=== PATIENT | female | born 1980 | race African-American/Black ===

== ENCOUNTER 2017-05-12 10:27 | Emergency (ER) | payer OTHER ==
[~2017-05-12] VITALS: Ht 160 cm; Wt 86.2 kg
[2017-05-12 10:49] VITALS: BP 148/95
== END 2017-05-12 11:10 | disposition home or self-care (01) ==
LOC: ER 10:27
DX: N61.1 Abscess of the breast and nipple (principal)

== ENCOUNTER 2017-05-14 10:04 | Emergency (ER) | payer OTHER ==
[~2017-05-14] VITALS: Ht 160 cm; Wt 86.2 kg
[2017-05-14 10:26] VITALS: BP 141/84
== END 2017-05-14 11:17 | disposition home or self-care (01) ==
LOC: ER 10:04 → EDUNIT# 10:04 → ER 11:17
DX: N61.1 Abscess of the breast and nipple (principal)
CPT/HCPCS: 10060

== ENCOUNTER 2017-05-18 19:07 | Emergency (ER) | payer OTHER ==
[~2017-05-18] VITALS: Ht 160 cm; Wt 86.2 kg
[2017-05-18 20:16] VITALS: BP 137/90
== END 2017-05-18 20:37 | disposition home or self-care (01) ==
LOC: ER 19:07
DX: N61.1 Abscess of the breast and nipple (principal); Z48.01 Encounter for change or removal of surgical wound dressing

== ENCOUNTER → 2020-01-15 | Day surgery (SDC) | payer BC ==
[2020-01-13 12:17] LABS: Basophils # (auto) 0 10 ^3/uL (0-0.2); Basophils % (auto) 0.3 % (0.0-2.0); Eosinophils # (auto) 0.1 10 ^3/uL (0-0.8); Hematocrit 44.6 % (36.0-46.0); Hemoglobin 14.8 g/dL (12.2-16.2); Lymphocytes # (auto) 1.8 10 ^3/uL (0.4-5.4); Lymphocytes % (auto) 23.6 % (10.0-50.0); Mean Corpuscular Hemoglobin 32.4 pg (28.0-32.0); Mean Corpuscular Hgb Conc. 33.1 g/dL (32.0-36.0); Mean Corpuscular Volume 97.9 fL (80.0-100.0); Monocytes # (auto) 0.4 10 ^3/uL (0-1.3); Monocytes % (auto) 5.9 % (0.0-12.0); Neutrophils # (auto) 5.3 10 ^3/uL (1.6-8.6); Neutrophils % (auto) 69.2 % (37.0-80.0); Nucleated Red Blood Cells % 0.1 %; Platelet Count (auto) 191 10^3/uL (140-450); Red Blood Cells 4.56 10^6/uL (4.0-5.20); Red Cell Distribution Width 13.6 % (11.8-14.3); White Blood Cell 7.6 10^3/uL (4.4-10.8)
[2020-01-13 12:22] LABS: Urine Blood Negative /uL (Negative); Urine WBC 1 /hpf (0 - 5)
[2020-01-13 12:24] LABS: Urine Bacteria MODERATE /hpf (None Seen)
[2020-01-13 12:25] LABS: Albumin 4.1 g/dL (3.4-5.0); Calcium 9.2 mg/dL (8.5-10.1); Potassium 4.1 mmol/L (3.5-5.1)
[2020-01-13 12:29] LABS: BUN/Creatinine Ratio 14.1; Bilirubin, Total 0.6 mg/dL (0.2-1.0); Total Protein 7.7 g/dL (6.4-8.2)
[2020-01-13 12:31] LABS: INR 0.98 (0.9-1.15); Partial Thromboplastin Time 28.5 sec (23.64-32.05)
[~2020-01-15] VITALS: Ht 160 cm; Wt 69.4 kg
[~2020-01-15] MED LIST: ACCU-CHEK COMFORT CURVE STRIP VI ONE; ASPI-404 PO; BUTA-280 PO; GLYCOPYRROLATE 0.2 MG/ML 1ML VIAL ONE; HYDROmorphone HCL 2 MG/ML VL IV PRN; KETOROLAC TROMETH 60MG/2ML VIAL ONE; LACTATED RINGER'S 1,000 ML IV SCH; LISI10TA6 PO; MEPERIDINE HCL (25 MG/ML) 1ML VIAL ONE; METF-370 PO; MIDAZOLAM HCL 1MG/1ML-2 ML VIAL ONE; MORPHINE SULFATE 4 MG/ML SYR/VIAL IV PRN; NEOSTIGMINE 1 MG/ML INJ (10mg/10ML VIAL) ONE; ONDANSETRON HCL 4 MG/2 ML VIAL IV PRN; ONDANSETRON HCL 4 MG/2 ML VIAL ONE; PROPOFOL 10 MG/ML 20 ML IV ONE; ROCURONIUM 10MG/ML 10ML VIAL IV ONE; SODIUM CHLORIDE LOCK 10 ML ONE; ceFAZolin 1GM/50ML 50 ML IV ONE; fentaNYL CITRATE 100 MCG/2 ML VL ONE
[2020-01-15 09:51] VITALS: BP 121/71
== END | disposition home or self-care (01) ==
LOC: SUR 05:53
PROVIDERS: ATTEND Specialist
DX: Z30.2 Encounter for sterilization (principal); I10 Essential (primary) hypertension; E11.9 Type 2 diabetes mellitus without complications; E78.00 Pure hypercholesterolemia, unspecified; E78.5 Hyperlipidemia, unspecified; Z79.82 Long term (current) use of aspirin; Z79.899 Other long term (current) drug therapy; Z98.890 Other specified postprocedural states; Z11.59 Encounter for screening for other viral diseases
CPT/HCPCS: 36415; 58671; 80053; 81001; 82962; 84702; 85025; 85610; 85730; 86850; 86900; 86901; 87086; J0690; J1885; J2175; J2250; J2405; J2704; J3010; U0003